=== PATIENT | female | born 1990 | race Caucasian/White ===

== ENCOUNTER 2021-09-05 04:50 | Observation (INO) | payer BC, SELFPAY ==
[2021-09-05] VITALS (8 sets, daily range): BP systolic 106–130; BP diastolic 51–89; PULSE 54–79; RESP 12–20; TEMP 36.2–36.9; O2SAT 98–100
--- NOTE | ~2021-09-05 | CT_ITS ---
EXAMINATION: CT abdomen pelvis w con DATE: 09/05/2021 07:00 INDICATION: Bilateral lower abdominal pain. Bloody stool, diarrhea. TECHNIQUE: Computed tomography (CT) of the abdomen and pelvis was performed with 100 cc Omnipaque 350 intravenous contrast. Automated exposure control and iterative reconstruction technique were employe d. Exam dose: 674.46 mGy-cm total exam DLP. COMPARISON: None. FINDINGS: There is minimal dependent bilateral lower lobe atelectasis. Heart size is normal. No peric ardial or pleural effusion. 1.4 cm hepatic cyst. Very small inferior right hepatic cyst. The liver is otherwise unremarkable. The gallbladder is present. No gallbladder wall thickening or pericholecystic fluid or fat stranding. No bile duct or pancreatic duct dilatation. No pancreatic mass lesion or calcification. Splenic size is within normal range. Normal morphology of the adrenal glands. No renal mass lesion or urinary tract calculus or hydroureteronephrosis. 1.5 cm and 1.9 cm peripherally enhancing right ovarian cysts. The uterus and adnexal areas and urinar y bladder otherwise are unremarkable. There is a small amount of free fluid in the cul-de-sac. No bowel obstruction or intraperitoneal free air. Normal caliber of the abdominal aorta. No intraperitoneal or retroperitoneal or pelvic mass lesion or adenopathy. Included skeletal structures are unremarkable. IMPRESSION: Involuting and/or ruptured right ovarian cysts with mild free fluid in the cul-de-sac Reviewed, dictated and finalized at [facility] Reviewed, dictated and finalized at [facility] ADVISOR IMPRESSION: Involuting and/or ruptured right ovarian cysts with mild free flui d in the cul-de-sac
--- NOTE | 2021-09-05 05:16 | PC.NURSE ---
Pt reports she has had bright red rectal bleeding and lower abd pain x 10 hours. C/O pain that is 10/10. reports bright red blood that is painful to pass. Skin pwd. Resps even/nonlabored. no s/s of distress.
--- NOTE | 2021-09-05 05:24 | ED.GENADULT ---
HPI - General Adult General Chief complaint: Abdominal Pain <Estevan Johnson MD - Last Filed: 09/05/21 07:36> Stated complaint: Bloody diarrhea, abd pain,n/v <Estevan Johnson MD - Last Filed: 09/05/21 07:36> Time Seen by Provider: 09/05/21 05:17 <Estevan Johnson MD - Last Filed: 09/05/21 07:36> History of Present Illness HPI narrative: Patient is a 31-year-old female who presents ER with lower abdominal cramping and bloody stools. Reports she has had painful cramping that causes red flecks of blood come out of her rectum. No significant diarrhea. No firm stools. Reports 2 weeks ago she did have a formed stool that caused her to have small amount of blood in her stool and on the paper. No fevers or chills or sweats. No known sick contacts. <Estevan Johnson MD - Last Filed: 09/05/21 07:36> Related Data Home medications: Home Medications Medication Instructions Recorded Confirmed No Home Medications 09/05/21 09/05/21 <Estevan Johnson MD - Last Filed: 09/05/21 07:36> Allergies/adverse reactions: Allergies Allergy/AdvReac Type Severity Reaction Status Date / Time Sulfa (Sulfonamide Allergy Unknown Unknown Verified 09/05/21 05:08 Antibiotics) ERYTHROMYCIN ETHYLSUCCINATE Allergy Unknown Unknown Uncoded 09/05/21 05:08 SULFISOXAZOLE ACETYL Allergy Unknown Unknown Uncoded 09/05/21 05:08 <Estevan Johnson MD - Last Filed: 09/05/21 07:36> Review of Systems Review of Systems: All systems reviewed & are unremarkable except as noted in HPI and below <Estevan Johnson MD - Last Filed: 09/05/21 07:36> Constitutional: Constitutional: Denies chills, Denies fever(s) and Denies weakness <Estevan Johnson MD - Last Filed: 09/05/21 07:36> ENT: Denies nasal congestion and Denies sore throat <Estevan Johnson MD - Last Filed: 09/05/21 07:36> Gastrointestinal: Gastrointestinal: Reports abdominal pain, Denies diarrhea, Denies nausea and Denies vomiting <Estevan Johnson MD - Last Filed: 09/05/21 07:36> Musculoskeletal: Musculoskeletal: Denies back pain and Denies muscle cramps <Estevan Johnson MD - Last Filed: 09/05/21 07:36> PMFSH Past Medical History Medical History: Medical History (Updated 09/05/21 @ 10:36 by Darren Chand MD) Depression <Estevan Johnson MD - Last Filed: 09/05/21 07:36> Surgical History Surgical History: Surgical History (Updated 09/05/21 @ 07:35 by Estevan Johnson MD) No pertinent past surgical history <Estevan Johnson MD - Last Filed: 09/05/21 07:36> Social History Social History: Social History (Updated 09/05/21 @ 07:35 by Estevan Johnson MD) Smoking status: Never smoker <Estevan Johnson MD - Last Filed: 09/05/21 07:36> Exam Narrative: GENERAL: Well-appearing, well-nourished, and in no acute distress. HEAD: Normocephalic, atraumatic. NECK: Supple. CHEST: Clear to auscultation. No respiratory distress. HEART: Regular rate and rhythm. Normal peripheral pulses. ABDOMEN: Soft, tender palpation bilateral lower quadrants without guarding, nondistended. EXTREMITIES: Normal range of motion. No edema. SKIN: Warm, dry, no rash. NEURO: Alert and oriented x3. PSYCH: Normal mood and affect. <Estevan Johnson MD - Last Filed: 09/05/21 07:36> GI: GI Palp: Yes abdominal tenderness (Right lower quadrant) <Darren Chand MD - Last Filed: 09/05/21 10:37> Rectal Exam: visual inspection normal, normal sphincter tone, abnormal sphincter tone and heme positive stool (No stool in the rectal pouch, fresh red bright blood on the glove, no activ) <Darren Chand MD - Last Filed: 09/05/21 10:37> Course Course Emergency Course: Labs normal. CT scan pending. Transfer care to Dr. Chand. <Estevan Johnson MD - Last Filed: 09/05/21 07:36> Reevaluation(s) Reevaluation #1: Patient still having abdominal pain, another Dilaudid ordered. Physical exam showed significant tenderness right lo
[2021-09-05] MEDS: SODIUM CHLORIDE 0.9% IV 1,000 ML 999 ML IV CONT (05:45)
[2021-09-05] MEDS: ONDANSETRON INJ 4 MG/2 ML VIAL IV PUSH ×2 (05:46→13:40)
[2021-09-05] MEDS: MORPHINE SULFATE (*CRX) 4 MG/ML INJ IV PUSH ×2 (05:46→10:03)
[2021-09-05 05:49] LABS: Basophils Percent Auto 0.4 % (0.2-1.2); Hematocrit 40.8 % (37.0-47.0); Hemoglobin 13.8 g/dL (12.0-15.0); Immature Granulocyte Absolute 0.02 K/mm3 (0.00-0.031); Immature Granulocyte Percent A 0.2 % (0-0.5); Lymphocytes Absolute Auto 1.22 K/mm3 (0.9-3.2); Lymphocytes Percent Auto 12.8 % (18.3-44.2); Mean Corpuscular HGB Conc 33.8 g/dl (32-36); Mean Corpuscular Hemoglobin 30.3 pg (26-34); Mean Corpuscular Volume 89.7 fl (80-100); Mean Platelet Volume 12.8 fl (7.4-10.4); Monocytes Absolute Auto 1.3 K/mm3 (0.1-0.6); Monocytes Percent Auto 13.3 % (2.6-8.5); Neutrophils Percent Auto 73.3 % (45.5-73.1); Platelet Count Result 163 k/mm3 (150-375); Red Blood Count 4.55 M/mm3 (4.2-5.4); Red Cell Distribution Width 12.7 % (11.5-14.5); White Blood Count 9.5 K/mm3 (4.5-10.0)
[2021-09-05 05:53] LABS: Add Urine Microscopic? YES; Appearance Urine Clear (Clear); Bilirubin Urine Negative (Negative); Blood Urine Negative (Negative); Color Urine Yellow (Yellow); Glucose Urine UA Negative (Negative); Ketones Urine 2+ mg/dL (Negative); Leukocyte Esterase Ur Negative LEU/UL (Negative); Mucus Urine Rare /lpf; Nitrate Urine Negative (Negative); Protein Urine Negative (Negative); Specific Grav Ur 1.024 (1.001-1.035); Squamous Epithelial Cell Urine Few /hpf (Few); Urobilinogen Urine Negative mg/dL (<2.0); WBC Urine 0-3 /hpf
[2021-09-05 06:04] LABS: Alanine Aminotransferase 19 U/L (4-35); Albumin Level 4.8 g/dL (3.5-5.1); Alkaline Phosphatase 53 U/L (38-126); Anion Gap 6 mmol/L (8-16); Aspartate Amino Transferase 26 U/L (14-36); Bilirubin,Total 0.4 mg/dL (0.2-1.3); Blood Urea Nitrogen 11 mg/dL (7-17); Calcium 9.5 mg/dL (8.4-10.2); Carbon Dioxide 26 mmol/L (22-30); Chloride 101 mmol/L (98-107); Estimated CRCL calculation 120 ml/min; Estimated Glomerular Filt Rate > 60; Glucose 122 mg/dL (65-110); Lipase 35 U/L (23-300); Potassium 3.9 mmol/L (3.4-5.0); Sodium 133 mmol/L (137-145)
--- NOTE | 2021-09-05 09:59 | PC.NURSE ---
Pt requesting more pain medication. Verbal order obtained from Gagan, SPECIAL EDUCATION SECRETARY to repeat 4mg morphine pt received overnight.
[2021-09-05] MEDS: SODIUM CHLORIDE 0.9% IV 1,000 ML 200 ML IV CONT (11:15)
[2021-09-05] MEDS: PANTOPRAZOLE SODIUM IV 40 MG VIAL IV PUSH (11:15)
--- NOTE | 2021-09-05 12:45 | ADMGEN ---
This patient, Hermes Devi, was admitted to Medical Room 243-01. Patient/family oriented to hospital policies and general routines including ID bracelet, bed and alarms, visiting hours, pain management, procedures, bathroom and other care routines, personal items, smoking policy, room service/diet, and visiting hours. Information on how to activate the Rapid Response Team has been discussed. Patient/Family are encouraged to report perceived risks to care and to ask questions if they do not understand what they are told or what they should do.
[2021-09-05 13:38] LABS: Hematocrit 37.4 % (37.0-47.0); Hemoglobin 12.6 g/dL (12.0-15.0)
--- NOTE | 2021-09-05 14:50 | PM.IMHP ---
H&P: HPI History of Present Illness Date/Time: 09/05/21 14:50 Chief Complaint: Patient was admitted observation status Abd pain Narrative: This is a 31 year old woman with no chronic medical history, who presented to the ER with complaints of bloody stools. Patient states she had been feeling well in her usual state of health on morning, and then around 6:30 p.m. she developed abdominal cramping and went to the bathroom. She had episode of diarrhea and was found to have bright red blood in the toilet bowl and when she wiped. She then proceeded to continue having intermittent abdominal cramping making her go to the bathroom and have more bowel movements and bright red blood. She reports having 1 bloody stool per hour until about an hour ago she has had 4 bloody stools. She denies any more fecal content in her stools and it is straight blood . She was having intense abdominal cramping which was causing her to have nausea and dry heaves. Denies any fevers, chills, chest pain, shortness of breath, cough, issues with constipation, leg swelling, calf pain, lightheadedness, dizziness, or any other symptoms at this time. Code Status- Full Code Review of Systems Review of Systems: All systems reviewed & are unremarkable except as noted in HPI and below PMFSH Past Medical History Medical History Depression Surgical History Surgical History No pertinent past surgical history Social History Social History Smoking status: Former smoker Smoking end date: 09/11/10 Alcohol intake: current Drinks per week: 10 Substance use: current Substance use type: marijuana Spiritual care concerns: No Meds Home Medications and Allergies Home Medications Medication Instructions Recorded Confirmed Type No Home Medications 09/05/21 09/05/21 History Allergies Allergy/AdvReac Type Severity Reaction Status Date / Time Sulfa (Sulfonamide Allergy Unknown Unknown Verified 09/05/21 05:08 Antibiotics) ERYTHROMYCIN ETHYLSUCCINATE Allergy Unknown Unknown Uncoded 09/05/21 05:08 SULFISOXAZOLE ACETYL Allergy Unknown Unknown Uncoded 09/05/21 05:08 Vital Signs Vital Signs - 24 hr 09/05/21 05:02 09/05/21 05:20 09/05/21 06:08 Temperature 97.5 F L 98.1 F 98.1 F Pulse Rate 79 60 60 Respiratory Rate 17 20 16 Blood Pressure 130/89 123/67 122/67 Pulse Oximetry 100 100 100 09/05/21 12:39 Temperature Pulse Rate 70 Respiratory Rate 16 Blood Pressure 123/72 Pulse Oximetry 100 Exam Narrative: General: 31-year-old woman laying flat in bed, appears comfortable. In no acute distress. Skin: No jaundice or cyanosis. Good skin turgor. Neck: Full range of motion. Supple. Respiratory: Lungs are clear to auscultation bilaterally. No bony chest wall tenderness. Cardiovascular: The heart has a regular rate and rhythm without murmur. Lower extremities: No lower extremity edema. Distal pulses are easily palpated. No calf tenderness to palpation. Gastrointestinal: TTP suprapubic area and LUQ. The abdomen is otherwise soft, nondistended with active bowel sounds. Psychiatric: Lucid and oriented. Memory intact. Neurologic: No focal deficits. Speech is clear. No facial drooping. H&P: Results Labs Labs: Short CBC 09/05/21 09/05/21 Range/Units 05:33 13:28 WBC 9.5 (4.5-10.0) K/mm3 Hgb 13.8 12.6 (12.0-15.0) g/dL Hct 40.8 37.4 (37.0-47.0) % Plt Count 163 (150-375) k/mm3 [facility] 09/05/21 05:33 Sodium 133 L Potassium 3.9 Chloride 101 Carbon Dioxide 26 BUN 11 Creatinine 0.70 Glucose 122 H Calcium 9.5 Liver Function 09/05/21 Range/Units 05:33 Total Bilirubin 0.4 (0.2-1.3) mg/dL AST 26 (14-36) U/L ALT 19 (4-35) U/L Alkaline Phosphatase 53 (38-126
[2021-09-05 16:24] LABS: Hematocrit 36.3 % (37.0-47.0); Hemoglobin 12.1 g/dL (12.0-15.0)
--- NOTE | 2021-09-05 16:28 | WPDGICN ---
Assessment and Plan Additional Plan GI Consultation Dr. Guerra August, This is a 31 year old female patient without significant PMH/SMHx who now presents for evaluation of abdominal pain and bloody diarrhea. Patient is seen at the request of the Hospitalist service to evaluate for same. The patient?s primary care provider is Dr. Amanuel Sanchez. Patient states her problems began last pm with sudden onset of severe, generalized crampy abdominal pain and bloody diarrhea. Her symptoms progressed and she presented to the ER. She has occasional heartburn. She continues to have BRBPR. No history of recent ABx, others being ill, travel, well water or núñez swimming. She has sweats with the pain but no fever. In general, she denies abdominal pain, nausea or vomiting, trouble swallowing, bloating, loss of appetite or weight, early satiety, heartburn, diarrhea or constipation, rectal bleeding or melena. Patient denies fever, jaundice, scleral icterus, dark urine, light stool, itching, hot or cold intolerance, chest pain, shortness of breath at rest, hematuria, dysuria, new cough or visual changes, easy bruising, tingling of the skin, bone pain or tremors. No history of endocarditis, rheumatic fever, dental prophylaxis, heart valve surgery, bleeding disorder or joint replacement. Allergies: Emycin, sulfa. Medications: none. Social history: nonsmoker, social drinker. Family history: negative for GI malignancy/IBD. Physical exam: No lower extremity edema, jaundice, spider angioma, palmar erythema. Skull is normocephalic atraumatic. Sclera are non-icteric. Oropharynx is clear. Neck is supple without thyromegaly. Lungs are clear. Heart is rate and rhythm regular. S1 and S2 normal. Normal active bowel sounds. Diffuse, mild tenderness without guarding. Non-rigid, non-distended without hepatosplenomegaly or masses. Rectal is deferred. Neuro is conscious and alert ?3. Labs: Hct 41, WBC 10. MCV 90. Repeat Hct 37. LFT's normal. Imaging: CT A/P with IV unremarkable from GI perspective. Assessment and plan: A. Abdominal pain, diarrhea and hematochezia: - Most likely infectious colitis> IBD, ischemic colitis - ABx - Stool studies - Endoscopy only if patient worsens or fails to improve - Follow H+H; transfuse prn - Care with aspirin, NSAIDS and anticoagulants - If improved in am can advance diet B. GERD: consider PPI as OP. Thank you very much for allowing me to share in the care of your patient. Further recommendations per [facility]. Flo Guerra M.D. (c) [phone] GI Consult Note Consult date/time: 09/05/21 16:28 HPI: Hermes Devi is a 31 year old female REPLACED BY [facility] Past Medical History Medical History Depression Surgical History Surgical History No pertinent past surgical history Social History Social History Smoking status: Former smoker Smoking end date: 09/11/10 Alcohol intake: current Drinks per week: 10 Substance use: current Substance use type: marijuana Spiritual care concerns: No Meds Home Medications and Allergies Home Medications Medication Instructions Recorded Confirmed Type No Home Medications 09/05/21 09/05/21 History Allergies Allergy/AdvReac Type Severity Reaction Status Date / Time Sulfa (Sulfonamide Allergy Unknown Unknown Verified 09/05/21 05:08 Antibiotics) ERYTHROMYCIN ETHYLSUCCINATE Allergy Unknown Unknown Uncoded 09/05/21 05:08 SULFISOXAZOLE ACETYL Allergy Unknown Unknown Uncoded 09/05/21 05:08 Vital Signs Vital Signs - 24 hr 09/05/21 05:02 09/05/21 05:20 09/05/21 06:08 Temperature 36.4 C L 36.7 C 36.7 C Pulse Rate 79 60 60 Respiratory Rate 17 20 16 Blood Pressure 130/89 123/67 122/67 Pulse Oximetry 100 100 100 09/05/21 12:39 09/05/21 13:55 Temperature 36.3 C
[2021-09-05] MEDS: SODIUM CHLORIDE 0.9% IV 1,000 ML 85 ML IV CONT (18:03)
[2021-09-05 22:44] LABS: Hematocrit 35.6 % (37.0-47.0); Hemoglobin 11.9 g/dL (12.0-15.0)
[2021-09-06] MEDS: HYDROmorphone HCL INJ (*CRX) 1 MG/ML SYR 0.5 MG IV PUSH (01:08)
[2021-09-06 03:21] VITALS: BP 117/60; PULSE 68; RESP 16; TEMP 36.2; O2SAT 99
[2021-09-06] MEDS: SODIUM CHLORIDE 0.9% IV 1,000 ML 85 ML IV CONT (05:24)
[2021-09-06 05:46] LABS: Basophils Percent Auto 0.7 % (0.2-1.2); Eosinophils Absolute Auto 0.1 K/mm3 (0-0.3); Eosinophils Percent Auto 1.4 % (0-4.4); Hematocrit 34.4 % (37.0-47.0); Hemoglobin 11.7 g/dL (12.0-15.0); Immature Granulocyte Absolute 0.02 K/mm3 (0.00-0.031); Immature Granulocyte Percent A 0.3 % (0-0.5); Immature Platelet Fraction Pct 14.5 % (0.9-11.2); Lymphocytes Absolute Auto 1.21 K/mm3 (0.9-3.2); Lymphocytes Percent Auto 20.5 % (18.3-44.2); Mean Corpuscular Hemoglobin 31.1 pg (26-34); Mean Corpuscular Volume 91.5 fl (80-100); Mean Platelet Volume 13.4 fl (7.4-10.4); Monocytes Absolute Auto 0.8 K/mm3 (0.1-0.6); Monocytes Percent Auto 12.9 % (2.6-8.5); Neutrophils Absolute Auto 3.8 K/mm3 (1.3-6.7); Neutrophils Percent Auto 64.2 % (45.5-73.1); Platelet Count Result 118 k/mm3 (150-375); Red Blood Count 3.76 M/mm3 (4.2-5.4); White Blood Count 5.9 K/mm3 (4.5-10.0)
[2021-09-06 05:54] LABS: Anion Gap 3 mmol/L (8-16); Blood Urea Nitrogen 6 mg/dL (7-17); Calcium 8.5 mg/dL (8.4-10.2); Carbon Dioxide 27 mmol/L (22-30); Chloride 105 mmol/L (98-107); Estimated CRCL calculation 120 ml/min; Estimated Glomerular Filt Rate > 60; Glucose 90 mg/dL (65-110); Magnesium 1.9 mg/dL (1.6-2.3); Potassium 4.2 mmol/L (3.4-5.0); Sodium 135 mmol/L (137-145)
--- NOTE | 2021-09-06 08:02 | PM.IMPN ---
Progress Note: A&P Assessment and Plan (1) Abdominal pain: Qualifiers: Abdominal location: lower abdomen, unspecified Qualified Code(s): R10.30 - Lower abdominal pain, unspecified Code(s): R10.9 - Unspecified abdominal pain Status: Acute Assessment and Plan: Patient continues to have intermittent abdominal cramping and then bright red bloody stools. Abdominal x-rays otherwise unremarkable other than possible ruptured ovarian cyst on the right. This could be contributing to her abdominal pain, but believe she is having cramping due to rectal bleeding as well. Patient is on a clear liquid diet at this time and tolerating it without any worsening symptoms GI has been consulted and believes this is due to infectious colitis and recommends IV antibiotics and stool cultures. Started on IV Zosyn #1 will continue monitoring her symptoms to see if it improves over the next 24 hours Continue checking H&H every 6 hours to make sure she is not dropping significantly and needs a transfusion. GA pain medications and antiemetics as needed. continue monitoring. Appreciate GIs input. (2) Bright red rectal bleeding: Code(s): K62.5 - Hemorrhage of anus and rectum Status: Acute Assessment and Plan: See above under abdominal pain. (3) Ovarian cyst rupture: Code(s): N83.209 - Unspecified ovarian cyst, unspecified side Status: Acute Assessment and Plan: Found to have possible ruptured ovarian cyst on the right. This could be contributing to some of her discomfort, but believe abdominal cramping distal secondary to diarrhea and bright red blood. Time Spent With Patient Time with patient: 25 - 35 minutes Subjective Date/time seen: 09/06/21 08:02 Interval history: Date of service 09/06/2021: Patient continues to have similar abdominal cramping followed by bright red blood per rectum. She denies any improvement or worsening of her symptoms. She tolerated clear liquid diet without any issues. Denies any fevers, chills, chest pain, shortness of breath, cough, nausea, vomiting, leg swelling, cramping, lightheadedness, dizziness, near-syncope, or any other symptoms at this time. Review of Systems Review of Systems: All systems reviewed & are unremarkable except as noted in HPI and below Exam Narrative: General: 31-year-old woman laying flat in bed, appears comfortable. In no acute distress. Skin: No jaundice or cyanosis. Good skin turgor. Neck: Full range of motion. Supple. Respiratory: Lungs are clear to auscultation bilaterally. No bony chest wall tenderness. Cardiovascular: The heart has a regular rate and rhythm without murmur. Lower extremities: No lower extremity edema. Distal pulses are easily palpated. No calf tenderness to palpation. Gastrointestinal: TTP suprapubic area and LUQ. The abdomen is otherwise soft, nondistended with active bowel sounds. Psychiatric: Lucid and oriented. Memory intact. Neurologic: No focal deficits. Speech is clear. No facial drooping. Objective Data Vital Signs Vital Signs: Vital Signs - 24 hr 09/05/21 12:39 09/05/21 13:55 09/05/21 18:20 Temperature 97.4 F L 98.4 F Pulse Rate 70 78 59 L Respiratory Rate 16 16 12 Blood Pressure 123/72 116/60 120/76 Pulse Oximetry 100 100 100 09/05/21 19:19 09/05/21 23:26 09/06/21 03:21 Temperature 97.1 F L 97.6 F 97.2 F L Pulse Rate 63 54 L 68 Respiratory Rate 18 17 16 Blood Pressure 114/54 L 106/51 L 117/60 Pulse Oximetry 99 98 99 Intake/Output Intake/Output: Intake & Output 09/03/21 09/04/21 09/05/21 09/06/21 23:59 23:59 23:59 23:59 Intake Total 2100 1350 Output Total 100 6 Balance 1999 1344 Meds/Results Medications: Active Medications Generic Name Dose Route Start Last Admin Trade Name
[2021-09-06] MEDS: PANTOPRAZOLE SODIUM IV 40 MG VIAL IV PUSH (08:58)
--- NOTE | 2021-09-06 12:01 | WPDGIPROGNO ---
Progress Note: A&P Assessment and Plan (1) Bright red rectal bleeding: Code(s): K62.5 - Hemorrhage of anus and rectum Status: Acute Assessment and Plan: Bloody diarrhea most consistent with infectious colitis. Stool cultures pending. Patient now on Zosyn. Would defer endoscopy for now pending collection of stool cultures and antibiotic use. Monitor closely agree with hemoglobin intermittently. (2) Abdominal pain: Qualifiers: Abdominal location: lower abdomen, unspecified Qualified Code(s): R10.30 - Lower abdominal pain, unspecified Code(s): R10.9 - Unspecified abdominal pain Status: Acute Subjective Date/time seen: 09/06/21 12:01 Patient alert this morning. Continues to have bloody stools. Mild abdominal discomfort. Review of Systems Review of Systems: All systems reviewed & are unremarkable except as noted in HPI and below Exam Narrative: Physical exam reveals patient be alert. Vital signs stable. Abdomen soft with mild tenderness diffusely and poorly localized. Objective Data Vital Signs Vital Signs: Vital Signs - 24 hr 09/05/21 12:39 09/05/21 13:55 09/05/21 18:20 Temperature 97.4 F L 98.4 F Pulse Rate 70 78 59 L Respiratory Rate 16 16 12 Blood Pressure 123/72 116/60 120/76 Pulse Oximetry 100 100 100 09/05/21 19:19 09/05/21 23:26 09/06/21 03:21 Temperature 97.1 F L 97.6 F 97.2 F L Pulse Rate 63 54 L 68 Respiratory Rate 18 17 16 Blood Pressure 114/54 L 106/51 L 117/60 Pulse Oximetry 99 98 99 Intake/Output Intake/Output: Intake & Output 09/03/21 09/04/21 09/05/21 09/06/21 23:59 23:59 23:59 23:59 Intake Total 2100 2060 Output Total 100 706 Balance 1999 1354 Meds/Results Medications: Active Medications Generic Name Dose Route Start Last Admin Trade Name Freq PRN Reason Stop Dose Admin Acetaminophen 650 mg 09/06/21 08:38 Acetaminophen 325 Mg Tablet PO Q4H PRN Mild Pain (1-3) or Fever Hydromorphone HCl 0.5 mg 09/05/21 10:31 09/06/21 01:08 Hydromorphone Hcl Inj (*Crx) 1 Mg/Ml Syr IV PUSH 0.5 mg Q4H PRN Administration Pain Rated 7-10 Piperacillin/Tazobactam/Dextrose 3.375 gm in 50 mls @ 100 mls/hr 09/06/21 08:30 09/06/21 09:36 Zosyn 3.375 Gm/D5w 50ml Pm IVPB Infused Q6HR EUNICE Infusion Ondansetron HCl 4 mg 09/05/21 10:31 09/05/21 13:40 Ondansetron Inj 4 Mg/2 Ml Vial IV PUSH 4 mg Q4H PRN Administration Nausea Pantoprazole Sodium 40 mg 09/06/21 09:00 09/06/21 08:58 Pantoprazole Sodium Iv 40 Mg Vial IV PUSH 40 mg QAM EUNICE Administration Tramadol HCl 25 mg 09/06/21 08:38 Tramadol Hcl (*Crx) 25 Mg Tablet PO Q4H PRN Pain Rated 4-6 Radiology Results: ITS Impressions Abdomen/Pelvis CT 09/05/21 08:59 IMPRESSION: Involuting and/or ruptured right ovarian cysts with mild free fluid in the cul-de-sac Labs Labs: Laboratory Results - last 24 hr 09/05/21 09/05/21 09/05/21 13:28 16:18 22:37 WBC RBC Hgb 12.6 12.1 11.9 L Hct 37.4 36.3 L 35.6 L MCV MCH MCHC RDW Plt Count MPV Immature Gran % (Auto) Neut % (Auto) Lymph % (Auto) [place] % (Auto) Eos % (Auto) Baso % (Auto) Lymph # (Auto) [place] # (Auto) Eos # (Auto) Baso # (Auto) Abs Immat Gran (auto) Absolute Neuts (auto) Absolute Nucleated RBC Nucleated RBC % % Immature Plt Fraction Sodium Potassium Chloride Carbon Dioxide Anion Gap BUN Creatinine Estim Creat Clear Calc Estimated GFR Glucose Calcium Magnesium 09/06/21 09/06/21 05:04 05:04 WBC 5.9 RBC 3.76 L Hgb 11.7 L Hct 34.4 L MCV 91.5 MCH 31.1 MCHC 34.0 RDW 13.0 Plt Count 118 L MPV 13.4 H Immature Gran % (Auto) 0.3 Neut % (Auto) 64.2 Lymph % (Auto) 20.5 [place] % (Auto) 12.9 H Eos % (Auto) 1.4 Baso % (Auto) 0.7 Lymph # (Auto) 1.21 [place] # (Auto) 0.8 H Eos #
[2021-09-06 12:43] LABS: Hematocrit 36.2 % (37.0-47.0); Hemoglobin 12.2 g/dL (12.0-15.0)
[2021-09-06 14:08] VITALS: BP 112/63; PULSE 66; RESP 14; TEMP 36.7; O2SAT 100
[2021-09-06 20:13] VITALS: BP 118/64; PULSE 55; RESP 18; TEMP 37.1; O2SAT 99
[2021-09-06 21:14] LABS: Hematocrit 38.8 % (37.0-47.0)
[2021-09-07 03:47] VITALS: BP 111/58; PULSE 58; RESP 18; TEMP 37.1; O2SAT 99
[2021-09-07 05:44] LABS: Hematocrit 38.4 % (37.0-47.0); Hemoglobin 12.7 g/dL (12.0-15.0); Mean Corpuscular HGB Conc 33.1 g/dl (32-36); Mean Corpuscular Hemoglobin 29.7 pg (26-34); Mean Corpuscular Volume 89.9 fl (80-100); Mean Platelet Volume 13.3 fl (7.4-10.4); Platelet Count Result 133 k/mm3 (150-375); Red Blood Count 4.27 M/mm3 (4.2-5.4); Red Cell Distribution Width 12.9 % (11.5-14.5); White Blood Count 5.6 K/mm3 (4.5-10.0)
[2021-09-07 05:54] LABS: Anion Gap 6 mmol/L (8-16); Blood Urea Nitrogen 10 mg/dL (7-17); Carbon Dioxide 22 mmol/L (22-30); Chloride 105 mmol/L (98-107); Estimated CRCL calculation 106 ml/min; Estimated Glomerular Filt Rate > 60; Glucose 88 mg/dL (65-110); Potassium 3.7 mmol/L (3.4-5.0); Sodium 133 mmol/L (137-145)
[2021-09-07] MEDS: PANTOPRAZOLE SODIUM IV 40 MG VIAL IV PUSH (08:26)
--- NOTE | 2021-09-07 09:08 | PM.IMPN ---
Progress Note: A&P Assessment and Plan (1) Abdominal pain: Qualifiers: Abdominal location: lower abdomen, unspecified Qualified Code(s): R10.30 - Lower abdominal pain, unspecified Code(s): R10.9 - Unspecified abdominal pain Status: Acute Assessment and Plan: Abdominal x-rays otherwise unremarkable other than possible ruptured ovarian cyst on the right. tolerating low residual PO diet. GI has been consulted and believes this is due to infectious colitis and recommends IV antibiotics and stool cultures (these are still pending collection). Awaiting stool culture collection - remains pending. Started on IV Zosyn on 09/06 yesterday. Her symptoms did improve with this. She has received 5 doses of IV Zosyn since it was started yesterday 09/06 morning. passing gas today and low to no bowel sounds on auscultation with no output despite eating most of her meals. encouraged her to ambulate safely and more often. bright red bloody stools/rectal bleeding output less frequent. abdominal cramping resolved. Stopping serial H&H every 6 hours, counts have been stable for past 24 hours. [place] pain medications and antiemetics as needed. continue monitoring. Appreciate GIs input. (2) Bright red rectal bleeding: Code(s): K62.5 - Hemorrhage of anus and rectum Status: Acute Assessment and Plan: See above under abdominal pain. (3) Ovarian cyst rupture: Code(s): N83.209 - Unspecified ovarian cyst, unspecified side Status: Acute Assessment and Plan: Found to have possible ruptured ovarian cyst on the right. This could be contributing to some of her discomfort, but believe abdominal cramping distal secondary to diarrhea and bright red blood. She has a follow up appointment scheduled with her Primary Care physician for Monday to F/U on ruptured ovarian cyst. Subjective Date/time seen: 09/07/21 09:08 Interval history: Date of service 09/07/2021: Hermes feeling better today. She has absence of bowel sounds today. She denies any N/V/abdominal cramping for the last 24 hours. She did have 1 bright red blood small stool per rectum yesterday, none today. She understands that we would like to collect stool for culture analysis. Appreciate and following GI recommendations at this time. She has received 5 doses of IV Zosyn since it was started yesterday 09/06 morning. She states that seems to have helped her the most. She admits to passing gas today, but has had no output despite eating most of her meals. I have encouraged her to ambulate safely and more often. Awaiting stool culture collection - remains pending. Her H/H has been stable, I have discontinued the serial H/Hs. H/H=13.8/40/8 on 09/05 and today 12.7/38.4. She wants to stop getting stuck for lab draws. She denies any worsening of her symptoms. She has tolerated clear liquid diet without any issues. Denies any fevers, chills, chest pain, shortness of breath, cough, nausea, vomiting, leg swelling, cramping, lightheadedness, dizziness, near-syncope, or any other symptoms at this time. She has a follow up appointment scheduled with her Primary Care physician for Monday to F/U on her GI symptoms and her ruptured ovarian cyst. Review of Systems Review of Systems: All systems reviewed & are unremarkable except as noted in HPI and below Constitutional: Constitutional: Denies excessive sweating, Denies headache(s), Denies increased appetite, Denies snoring and Denies weight gain Eyes: Eyes: Denies exophthalmos, Denies diplopia, Denies floaters and Denies loss of peripheral vision ENT: Denies facial pain, Denies headache(s), Denies odynophagia and Denies tinnitus Respiratory: Respiratory: Denies snoring Gastrointestinal: Gastrointestinal: Denies abdominal pain, Denies bloating, Reports hematochezia, Reports change in stool character, Denies constipation, Reports excessive flatus, Denies diarrhea, Olvin
--- NOTE | 2021-09-07 12:39 | WPDGIPROGNO ---
Progress Note: A&P Assessment and Plan (1) Bright red rectal bleeding: Code(s): K62.5 - Hemorrhage of anus and rectum Status: Acute Assessment and Plan: Bloody diarrhea all consistent with infectious colitis. Patient improving with intravenous antibiotics. Plan to change to oral antibiotics increase to regular diet. Patient may be discharged on 1 week of oral antibiotics after discharge suggest Flagyl and Cipro. Stool cultures are pending at this time. (2) Abdominal pain: Qualifiers: Abdominal location: lower abdomen, unspecified Qualified Code(s): R10.30 - Lower abdominal pain, unspecified Code(s): R10.9 - Unspecified abdominal pain Status: Acute Subjective Date/time seen: 09/07/21 12:39 Patient feels much improved today. Only 1 recent bowel movement. Small amount of blood noted. She denies abdominal pain. Currently tolerating Liquid diet without difficulty. Review of Systems Review of Systems: All systems reviewed & are unremarkable except as noted in HPI and below Exam Narrative: physical exam reveals patient be alert vital signs stable she is afebrile and anicteric. Lungs are clear. Heart without murmur. Abdomen bowel sounds present soft nontender with no organomegaly. Objective Data Vital Signs Vital Signs: Vital Signs - 24 hr 09/06/21 14:08 09/06/21 20:13 09/07/21 03:47 Temperature 98.1 F 98.8 F 98.8 F Pulse Rate 66 55 L 58 L Respiratory Rate 14 18 18 Blood Pressure 112/63 118/64 111/58 L Pulse Oximetry 100 99 99 Intake/Output Intake/Output: Intake & Output 09/04/21 09/05/21 09/06/21 09/07/21 23:59 23:59 23:59 23:59 Intake Total 2100 2810 900 Output Total 100 4106 1200 Balance 2000 -9396 -300 Meds/Results Medications: Active Medications Generic Name Dose Route Start Last Admin Trade Name Freq PRN Reason Stop Dose Admin Acetaminophen 650 mg 09/06/21 08:38 Acetaminophen 325 Mg Tablet PO Q4H PRN Mild Pain (1-3) or Fever Hydromorphone HCl 0.5 mg 09/05/21 10:31 09/06/21 01:08 Hydromorphone Hcl Inj (*Crx) 1 Mg/Ml Syr IV PUSH 0.5 mg Q4H PRN Administration Pain Rated 7-10 Piperacillin/Tazobactam/Dextrose 3.375 gm in 50 mls @ 100 mls/hr 09/06/21 08:30 09/07/21 12:03 Zosyn 3.375 Gm/D5w 50ml Pm IVPB Infused Q6HR EUNICE Infusion Ondansetron HCl 4 mg 09/05/21 10:31 09/05/21 13:40 Ondansetron Inj 4 Mg/2 Ml Vial IV PUSH 4 mg Q4H PRN Administration Nausea Pantoprazole Sodium 40 mg 09/06/21 09:00 09/07/21 08:26 Pantoprazole Sodium Iv 40 Mg Vial IV PUSH 40 mg QAM EUNICE Administration Tramadol HCl 25 mg 09/06/21 08:38 Tramadol Hcl (*Crx) 25 Mg Tablet PO Q4H PRN Pain Rated 4-6 Radiology Results: ITS Impressions Abdomen/Pelvis CT 09/05/21 08:59 IMPRESSION: Involuting and/or ruptured right ovarian cysts with mild free fluid in the cul-de-sac Labs Labs: Laboratory Results - last 24 hr 09/06/21 09/06/21 09/07/21 12:34 20:57 04:51 WBC 5.6 RBC 4.27 Hgb 12.2 13.0 12.7 Hct 36.2 L 38.8 38.4 MCV 89.9 MCH 29.7 MCHC 33.1 RDW 12.9 Plt Count 133 L MPV 13.3 H Sodium Potassium Chloride Carbon Dioxide Anion Gap BUN Creatinine Estim Creat Clear Calc Estimated GFR Glucose Calcium 09/07/21 04:51 WBC RBC Hgb Hct MCV MCH MCHC RDW Plt Count MPV Sodium 133 L Potassium 3.7 Chloride 105 Carbon Dioxide 22 Anion Gap 6 L BUN 10 Creatinine 0.80 Estim Creat Clear Calc 106 Estimated GFR > 60 Glucose 88 Calcium 9.0 Amg Follow-up Billing Inpatient Follow-up [id number] [facility]
--- NOTE | 2021-09-07 13:33 | PM.DS ---
DS: Admitting Diagnosis Discharge Date 09/07/2021 Admitting Diagnosis Infectious Colitis, right ruptured ovarian cyst DS: Discharge Diagnosis Discharge Diagnosis (1) Abdominal pain: Qualifiers: Abdominal location: lower abdomen, unspecified Qualified Code(s): R10.30 - Lower abdominal pain, unspecified Code(s): R10.9 - Unspecified abdominal pain Status: Acute Assessment and Plan: Likely from Colitis and ruptured ovarian cyst on the right.(on abd xray) tolerating low residual PO diet. GI has been consulted and believes this is due to infectious colitis and recommends IV antibiotics and stool cultures (these are still pending collection). Awaiting stool culture collection - remains pending. Started on IV Zosyn on 09/06 yesterday. Her symptoms did improve with this. She has received 5 doses of IV Zosyn since it was started yesterday 09/06 morning. passing gas today and low to no bowel sounds on auscultation with no output despite eating most of her meals. encouraged her to ambulate safely and more often. bright red bloody stools/rectal bleeding output less frequent. abdominal cramping resolved. Stopping serial H&H every 6 hours, counts have been stable for past 24 hours. [facility] pain medications and antiemetics as needed. since patient improved significantly on antibiotics, GI decided to discharge patient on oral antibiotics. (2) Bright red rectal bleeding: Code(s): K62.5 - Hemorrhage of anus and rectum Status: Acute Assessment and Plan: See above under abdominal pain. none noted today or for the past 24 hours prior to discharge. (3) Ovarian cyst rupture: Code(s): N83.209 - Unspecified ovarian cyst, unspecified side Status: Acute Assessment and Plan: Found to have possible ruptured ovarian cyst on the right. This could be contributing to some of her discomfort, but believe abdominal cramping distal secondary to diarrhea and bright red blood. She has a follow up appointment scheduled with her Primary Care physician for Monday to F/U on ruptured ovarian cyst. DS: Summary Hospital Course Hospital Course: IV zosyn started, bloody stools / N/V/abdominal cramping and pain improved. GI consulted. Patient improved faster than expected and wanted to go home today. Time Spent with Patient Time attestation: Total time spent providing and/or coordinating discharge services: 60 minutes Exam Narrative: General: 31-year-old woman laying flat in bed, appears comfortable. In no acute distress. Skin: No jaundice or cyanosis. Good skin turgor. Neck: Full range of motion. Supple. Respiratory: Lungs are clear to auscultation bilaterally. No bony chest wall tenderness. Cardiovascular: The heart has a regular rate and rhythm without murmur. Lower extremities: No lower extremity edema. Distal pulses are easily palpated. No calf tenderness to palpation. Gastrointestinal: no abd pain to gentle or deep palpation, passing flatulence, abdomen is otherwise soft, nondistended with low to no active bowel sounds - poor level of bowel sounds. Psychiatric: Lucid and oriented. Memory intact. Neurologic: No focal deficits. Speech is clear. No facial drooping. GI: Rectal Exam: visual inspection normal, normal sphincter tone, abnormal sphincter tone and heme positive stool (No stool in the rectal pouch, fresh red bright blood on the glove, no activ) DS: Data Data Completed and Pending Labs on day of discharge: Labs from last 24 hours 09/07/21 09/07/21 09/06/21 04:51 04:51 20:57 WBC 5.6 RBC 4.27 Hgb 12.7 13.0 Hct 38.4 38.8 MCV 89.9 MCH 29.7 MCHC 33.1 RDW 12.9 Plt Count 133 L MPV 13.3 H Sodium 133 L Potassium 3.7 Chloride 105 Carbon Dioxide 22 Anion Gap 6 L BUN 10 Creatinine 0.80 Estim Creat Clear Calc 106 Estimated GFR > 60 Glucose 88 Calcium 9.0 Discharge Plan
== END 2021-09-07 15:09 | disposition home or self-care (01) ==
LOC: ANHED 10:37 → ANH2MED 15:03
PROVIDERS: Emergency Medicine; Physician Assistant; Admitting Provider Family Medicine; Emergency Provider Emergency Medicine; PCP Family Medicine; Visit Provider Nurse Practitioner
DX: K62.5 Hemorrhage of anus and rectum (principal); R10.30 Lower abdominal pain, unspecified; N83.209 Unspecified ovarian cyst, unspecified side; K21.9 Gastro-esophageal reflux disease without esophagitis; F12.90 Cannabis use, unspecified, uncomplicated
CPT/HCPCS: 36415; 74177; 80048; 80053; 81001; 81025; 83690; 83735; 85014; 85018; 85025; 85027; 85055; 87015; 87045; 87269; 87272; 87324; 87427; 89055; 96361; 96365; 96366; 96374; 96375; 96376; 99285; C9113; G0378; J0131; J1170; J2270; J2405; J2543; J7030; Q9967

== ENCOUNTER 2021-11-06 10:07 | Outpatient (CLI) | payer BC, SELFPAY ==
[2021-11-06 11:12] LABS: SARS-CoV-2 Ag Negative (Negative)
[2021-11-06 11:25] LABS: SARS-CoV-2 RNA PCR Negative (Negative)
== END 2021-11-06 10:08 | disposition home or self-care (01) ==
LOC: CHSLAB 10:10
PROVIDERS: PCP Family Medicine; Visit Provider Physician Assistant
DX: Z20.822 Contact with and (suspected) exposure to COVID-19 (principal)
CPT/HCPCS: 87426; C9803; U0003; U0005

== ENCOUNTER 2023-01-18 11:27 | Emergency (ER) | payer BC, SELFPAY ==
--- NOTE | ~2023-01-18 | US_ITS ---
EXAMINATION: US OB <=14 wk fetus w TV DATE: 01/18/2023 13:04 INDICATION: Vaginal bleeding. Cramps. . TECHNIQUE: Real-time transabdominal and transvaginal obstetric ultrasound. FINDINGS: No prior studies for comparison. The uterus measures 9.6 x 5.5 x 4.9 cm. There is an intrauterine gestational sac with measurements co rresponding to a 6 week 2 day gestation. There is a yolk sac. No pole is identified. There is a subchorionic hemorrhage. There are nabothian cysts. The ovaries are unremarkable with a small corpus luteal cyst of the left ovary. IMPRESSION: 1. Intrauterine gestational sac corresponding to 6 week 2 day gestation. Sac contains a yolk sac with out evidence for pole. Considerations include early intrauterine and blighted ovum. R ecommend follow-up with serial quantitative beta hCG and ultrasound as clinically indicated. 2: Subchorionic hemorrhage. Reviewed, dictated and finalized at location [facility]. IMPRESSION: 1. Intrauterine gestational sac corresponding to 6 week 2 day gestation. Sac co ntains a yolk sac without evidence for pole. Considerations include early intrauterine and blighted ovum. Recommend follow-up with serial aaron titative beta hCG and ultrasound as clinically indicated. 2: Subchorionic hemorrhage.
[2023-01-18 11:29] VITALS: BP 127/83; PULSE 82; RESP 16; TEMP 37.1; O2SAT 100
[2023-01-18 12:10] LABS: Basophils Absolute Auto 0.1 K/mm3 (0.0-0.1); Basophils Percent Auto 0.6 % (0.2-1.2); Eosinophils Absolute Auto 0.1 K/mm3 (0-0.3); Eosinophils Percent Auto 1.6 % (0-4.4); Hematocrit 39.9 % (37.0-47.0); Hemoglobin 13.5 g/dL (12.0-15.0); Immature Granulocyte Absolute 0.02 K/mm3 (0.00-0.031); Immature Granulocyte Percent A 0.2 % (0-0.5); Lymphocytes Absolute Auto 2.27 K/mm3 (0.9-3.2); Mean Corpuscular HGB Conc 33.8 g/dl (32-36); Mean Corpuscular Hemoglobin 30.4 pg (26-34); Mean Corpuscular Volume 89.9 fl (80-100); Mean Platelet Volume 12.3 fl (7.4-10.4); Monocytes Absolute Auto 0.6 K/mm3 (0.1-0.6); Monocytes Percent Auto 7.1 % (2.6-8.5); Neutrophils Absolute Auto 5.1 K/mm3 (1.3-6.7); Neutrophils Percent Auto 62.5 % (45.5-73.1); Platelet Count Result 180 k/mm3 (150-375); Red Blood Count 4.44 M/mm3 (4.2-5.4); Red Cell Distribution Width 12.5 % (11.5-14.5); White Blood Count 8.1 K/mm3 (4.5-10.0)
[2023-01-18 12:11] LABS: Appearance Urine Clear (Clear); Bilirubin Urine Negative (Negative); Blood Urine Negative (Negative); Color Urine Yellow (Yellow); Glucose Urine UA Negative (Negative); Ketones Urine Trace mg/dL (Negative); Leukocyte Esterase Ur Negative LEU/UL (Negative); Nitrate Urine Negative (Negative); Protein Urine Negative (Negative); Specific Grav Ur 1.023 (1.001-1.035); Urobilinogen Urine 0.2 mg/dL (<2.0)
[2023-01-18 12:13] LABS: Add Urine Microscopic? NO
--- NOTE | 2023-01-18 12:31 | ED.FEMALEGU ---
HPI - Female Genitourinary General Chief complaint: Vaginal Bleeding Stated complaint: , bleeding Time Seen by Provider: 01/18/23 12:07 History of Present Illness HPI Narrative: Patient is a 32-year-old female G1, P0 at 6 weeks gestation presenting with vaginal bleeding. Patient states that she started spotting about 3 days ago. States that the bleeding was slightly heavier yesterday and then even heavier today. Denies passing clots. States that she soaked a panty liner today so she called her OB who advised that she come in for evaluation. She reports mild abdominal cramping. She had an episode of emesis earlier today but no longer feels nauseated. Denies fevers or chills, cough, chest pain, shortness of breath, leg swelling, dysuria. Related Data Allergies Allergy/AdvReac Type Severity Reaction Status Date / Time erythromycin base Allergy Unknown Unknown Verified 01/18/23 11:32 Sulfa (Sulfonamide Allergy Unknown Unknown Verified 01/18/23 11:32 Antibiotics) sulfisoxazole Allergy Unknown Unknown Verified 01/18/23 11:32 Review of Systems Review of Systems: All systems reviewed & are unremarkable except as noted in HPI and below PMFSH Past Medical History Medical History Depression Surgical History Surgical History No pertinent past surgical history Social History Social History Smoking status: Former smoker Smoking end date: 09/11/10 Alcohol intake: current Drinks per week: 10 Substance use: current Substance use type: marijuana Spiritual care concerns: No Exam Narrative: GENERAL: Well-appearing, well-nourished, and in no acute distress. HEAD: Normocephalic, atraumatic. EYES: PERRLA and EOMI. ENT: Nares clear, no rhinorrhea or epistaxis. Mucous membranes moist. NECK: Supple. CHEST: No respiratory distress. HEART: Regular rate and rhythm. ABDOMEN: Soft, nontender, nondistended EXTREMITIES: Normal range of motion. No edema. SKIN: Warm, dry, no rash. NEURO: No focal deficits. Alert and oriented x3. PSYCH: Normal mood and affect. Course Vital Signs Vital signs: Vital Signs Temperature 98.7 F 01/18/23 11:29 Pulse Rate 82 01/18/23 11:29 Respiratory Rate 16 01/18/23 11:29 Blood Pressure 127/83 01/18/23 11:29 Pulse Oximetry 100 01/18/23 11:29 Oxygen Delivery Room Air 01/18/23 11:29 Temperature 98.7 F 01/18/23 11:29 Pulse Rate 80 01/18/23 14:26 Respiratory Rate 16 01/18/23 14:26 Blood Pressure 127/83 01/18/23 11:29 Pulse Oximetry 100 01/18/23 14:26 Oxygen Delivery Room Air 01/18/23 11:29 MDM - Female Genitourinary MDM Narrative Medical decision making narrative: Patient is a 32-year-old female presenting with vaginal bleeding in the setting of early . Vitals within normal limits. Exam remarkable for the above. Plan for labs, type and screen, pelvic ultrasound. Blood work with stable hemoglobin. Patient is A negative. Beta hCG is 21,000. Pelvic ultrasound shows intrauterine gestation with no definite pole. May represent normal early versus blighted ovum. There is also a subchorionic hematoma which I suspect is causing the bleeding. Patient will need close monitoring of repeat ultrasound and hCG. Patient is seeing Dr. Finnegan and states that she will call her today for follow-up. Patient given a dose of RhoGAM and appropriate return precautions given. Discharged in stable condition. Differential Diagnosis Differential diagnosis: Likely urinary tract infection, dysmenorrhea and other (early , subchorionic hematoma, vaginal bleeding in ) Medical Records Attestation: I reviewed the patient's medical records. Lab Data Attestation: I reviewed the patient's lab results. 01/18/23 11:57 Labs: Lab R
[2023-01-18] MEDS: RHO(D) IMMUNE GLOBULIN 300 MCG/2 ML SYRINGE IM (14:19)
[2023-01-18 14:26] VITALS: PULSE 80; RESP 16; O2SAT 100
== END 2023-01-18 14:29 | disposition home or self-care (01) ==
PROVIDERS: Emergency Medicine; Emergency Provider Emergency Medicine; PCP Family Medicine
DX: O46.8X1 Other antepartum hemorrhage, first trimester (principal); Z87.891 Personal history of nicotine dependence; Z3A.01 Less than 8 weeks gestation of pregnancy
CPT/HCPCS: 36415; 76801; 76817; 81003; 81025; 84702; 85025; 85461; 86850; 86900; 86901; 90384; 96372; 99284; J2790

== ENCOUNTER 2023-02-15 10:18 | Outpatient (CLI) | payer BC, SELFPAY ==
--- NOTE | ~2023-02-15 | US_ITS ---
US OB <= 14 weeks fetus DATE: 02/15/2023 11:00 INDICATION: Subchorionic hematoma TECHNIQUE: Real-time and color flow imaging COMPARISON: None FINDINGS: The uterus measures 10.8 cm height, up to 6.8 cm AP dimension in the uterine fundus. An int rauterine gestational sac is identified with pole. heart rate of [address] n[address] Normal amount of amniotic fluid. Approximately 10 x 9 x 9 mm subchorionic hematoma is detected, undermining a very small percentage of the gestational sac. This is diminished in size compared to approximately 12 x 14 x 9 mm on 3. There is an approximately 2.1 x 2.6 x 1.8 cm left ovarian cyst. IMPRESSION: Diminished size of small subchorionic hematoma since 01/18/2023 Reviewed, dictated and finalized at [facility]. Reviewed, dictated and finalized at location []
== END 2023-02-15 10:19 | disposition home or self-care (01) ==
LOC: ANHIMG 10:27
PROVIDERS: PCP Family Medicine; Visit Provider Family Medicine
DX: O41.8X90 Other specified disorders of amniotic fluid and membranes, unspecified trimester, not applicable or unspecified (principal); Z3A.00 Weeks of gestation of pregnancy not specified
CPT/HCPCS: 76801

== ENCOUNTER 2023-03-19 17:58 | Emergency (ER) | payer BC, SELFPAY ==
[2023-03-19 18:07] VITALS: BP 102/63; PULSE 60; RESP 20; TEMP 37.1; O2SAT 100
--- NOTE | 2023-03-19 18:55 | ED.GENADULT ---
HPI - General Adult General Chief complaint: Headache Stated complaint: Migraine Time Seen by Provider: 03/19/23 18:55 Source: patient and other ( significant other Nader) Mode of arrival: ambulatory Limitations: no limitations History of Present Illness HPI narrative: patient is a 32-year-old white female 14 week intrauterine with history of migraines EDC September 11, 2023 started with a migraine throbbing worse this afternoon. Started last night she started vomiting [place] hour before she got here. Before she was she would get migraines every month now since she was 12 weeks she has had him every week. To been taking Tylenol and trying to keep fluids down. Denies any problems walking talking seeing or hearing . Gets dizzy when she sits up or stands up. Denies any fever sore throat, problems voiding or stooling rash or itching lumps or bumps or swelling bleeding or bruising. Denies any other pain. She is hard to take fluids and food because of her nausea. Denies any other complaints. Related Data Home Medications Medication Instructions Recorded Confirmed vits no.[id number]-ferrous fum 1 tablet PO DAILY 03/19/23 03/19/23 27 mg iron-folic acid 800 mcg tablet ( Vitamin) Allergies Allergy/AdvReac Type Severity Reaction Status Date / Time erythromycin base Allergy Unknown Unknown Verified 03/19/23 18:24 Sulfa (Sulfonamide Allergy Unknown Unknown Verified 03/19/23 18:24 Antibiotics) sulfisoxazole Allergy Unknown Unknown Verified 03/19/23 18:24 Review of Systems Review of Systems: All systems reviewed & are unremarkable except as noted in HPI and below PMFSH Past Medical History Medical History Depression Surgical History Surgical History No pertinent past surgical history Social History Social History Smoking status: Former smoker Smoking end date: 09/11/10 Alcohol intake: current Drinks per week: 10 Substance use: current Substance use type: marijuana Spiritual care concerns: No Exam Narrative: ? White female Moderate distress. Vital signs are normal.? Head normocephalic, atraumatic.? Eyes conjunctiva pink sclera nonicteric.? Extraocular movements are intact.? Ears externally normal.? Oropharynx is clear with moist mucous membranes without exudates.? Neck is supple nontender no lymphadenopathy.? Back is nontender.? Lungs are clear.? Heart is regular rate and rhythm without murmurs gallops or rubs.? Chest wall is nontender.? Abdomen is soft and nontender no hepatosplenomegaly or masses no CVA tenderness no abdominal bruits.? Extremities no cyanosis clubbing or edema.? Skin is warm and dry without rashes or lesions.? Neurological patient is alert and oriented x4.? Motor and sensory grossly intact.? Gait is normal. Course Vital Signs Vital signs: Vital Signs Temperature 37.1 C 03/19/23 18:07 Pulse Rate 60 03/19/23 18:07 Respiratory Rate 20 03/19/23 18:07 Blood Pressure 102/63 03/19/23 18:07 Pulse Oximetry 100 03/19/23 18:07 Oxygen Delivery Room Air 03/19/23 18:07 Temperature 37.1 C 03/19/23 18:07 Pulse Rate 60 03/19/23 18:07 Respiratory Rate 20 03/19/23 18:07 Blood Pressure 102/63 03/19/23 18:07 Pulse Oximetry 100 03/19/23 18:07 Oxygen Delivery Room Air 03/19/23 18:07 Medical Decision Making [facility] Narrative Medical decision making narrative: patient was placed in room 2 history and physical were performed she was given IV 0 fever med of 1 g Zofran 4 mg morphine 2 mg Benadryl 25 mg IV. She got substantial relief with this and was wishing discharge. Independent Historian: ? Significant other Nader Differential Dx includes but not limited to:? migraine tension headache Medications were Reviewed:? meds reviewed Independently Interp
[2023-03-19] MEDS: ONDANSETRON INJ 4 MG/2 ML VIAL IV PUSH (19:25)
[2023-03-19] MEDS: diphenhydrAMINE HCl INJ 50 MG/ML VIAL 25 MG IV PUSH (19:25)
--- NOTE | 2023-03-19 19:30 | PC.NURSE ---
IV Tylenol unavailable in [facility]. 2nd floor called and states that they do not have it stocked in their pyxis or the pharmacy. Dr. Brice aware.
[2023-03-19 20:12] VITALS: BP 102/52; PULSE 62; RESP 16; O2SAT 97
[2023-03-19] MEDS: MORPHINE SULFATE (*CRX) 2 MG/ML INJ IV PUSH (20:12)
[2023-03-19 22:04] VITALS: BP 112/61; PULSE 68; RESP 16; O2SAT 97
== END 2023-03-19 22:06 | disposition home or self-care (01) ==
PROVIDERS: Emergency Provider Emergency Medicine; PCP Family Medicine
DX: O26.892 Other specified pregnancy related conditions, second trimester (principal); G43.909 Migraine, unspecified, not intractable, without status migrainosus; Z3A.14 14 weeks gestation of pregnancy; Z87.891 Personal history of nicotine dependence
CPT/HCPCS: 96374; 96375; 99284; J1200; J2270; J2405